=== PATIENT | male | born 1940 | race Caucasian/White ===

== ENCOUNTER 2017-05-22 11:03 | Emergency (ER) | payer MEDICARE, BC ==
[2017-05-22] MEDS ORDERED: IPRATROPIUM/ALBUTEROL 0.5/3 MG 3 ML AMPUL.NEB INHALATION ONE (11:27)
[2017-05-22 11:37] LABS: BASOPHILS 0.8 % (0.0-2.0); EOSINOPHILS# 0.2 X 10^3uL (0.0-0.4); HEMATOCRIT 50.7 % (42.0-54.0); HEMOGLOBIN 17.6 g/dL (14.0-18.0); LYMPHOCYTES 37.3 % (20.0-40.0); LYMPHOCYTES# 3.3 X 10^3uL (0.8-3.8); MEAN CORPUS. HGB CONCENTRATION 34.8 g/dL (32.0-36.0); MEAN CORPUSCULAR HEMOGLOBIN 33.3 pg (29.0-35.0); MEAN PLATELET VOLUME 7.7 fL (7.4-10.4); MONOCYTES 7.4 % (2.0-10.0); MONOCYTES# 0.7 X 10^3uL (0.2-1.0); NEUTROPHILS 52.5 % (54.0-75.0); NEUTROPHILS# 4.6 X 10^3uL (2.6-6.7); PLATELET COUNT 200 X 10^3uL (130-440); RED CELL DISTRIBUTION WIDTH 13.3 % (11.5-14.5); WHITE BLOOD COUNT 8.7 X 10^3uL (3.9-10.7)
[2017-05-22 11:38] LABS: BASOPHIL# 0.1 X 10^3uL (0.0-0.1); BLOOD UREA NITROGEN 20 mg/dL (9-20); CALCIUM 10.2 mg/dL (8.4-10.2); CHLORIDE 98 mmol/L (98-107); EST GLOMERULAR FILTRATION RATE > 60 mL/min; GLUCOSE 149 mg/dL (70-100); MAGNESIUM 1.9 mg/dL (1.6-2.3); POTASSIUM 3.8 mmol/L (3.5-5.1); SODIUM 136 mmol/L (137-145)
[2017-05-22] MEDS ORDERED: NORMAL SALINE 500 ML IV ONE (11:42)
--- NOTE | 2017-05-22 11:49 | RADIOLOGY REPORT ---
HISTORY: Chest pain. COMPARISON: None. FINDINGS: 1 view of the chest obtained. The lungs are clear and well inflated. There is no evidence of pneumonia or pulmonary edema. There is no evidence of pleural effusion or pneumothorax. The heart is not enlarged. The bones appear unremarkable. IMPRESSION: Normal chest radiograph. Final Electronic Signature: This report was electronically signed by Ry Howard MD on 05/22/20 17 11:47 AM. [email or web address] /
[2017-05-22 11:53] LABS: TROPONIN I < 0.012 ng/mL (0.00-0.034)
--- NOTE | 2017-05-22 12:26 | ER PHYSICIAN DOCUMENTATION ---
Physician Documentation [facility] Name:Blayne Brown Age:77 yrs Sex:Male :1940 Arrival Date:05/22/2017 Time:11:03 BedTrauma-C Private MD: Andrew Bain Disposition: 05/22 12:13 Critical Care: not applicable. cd Disposition: 05/22/17 12:14 Discharged to Home/Self Care. Impression: COPD Exacerbation, Chest Pain, Other. - Condition is Good. - Discharge Instructions: COPD FLARE. - Medical Reconciliation form form. - Follow up: Private Physician; When: 2 - 3 days; Reason: Recheck today's complaints, Continuance of care. - Problem is new. - Symptoms are resolved. - Notes: Drink plenty of fluids. Rest today. Follow up with a Case Hardener upon returning home... Follow up with a Real Estate Subagent in 7 - 10 days for evaluation and possible Stress Echo. HPI: 11:21 This 77 yrs old Male presents to ER via Private Vehicle with complaints of cd Chest discomfort Janet; Dizziness and weakness while hiking today. 11:21 The patient or guardian reports chest pain that is located primarily in the substernal cd area. Onset: gradually, 4 day(s) ago, while hiking [employer] [place], 3 miles, steep [place]. He did some deep breathing exercises and took two puffs off his inhaler and it went completely away. He attributed that to his COPD. He has not had any chest discomfort over the past three days. He has hiked multiple hikes since that time. This morning he was hiking in one mile and felt a little dizzy and weak. He decided to turn around and come to the ED for an evaluation.. There has been no movement of pain. Associated signs and symptoms: Pertinent positives: dizziness, weakness ...but no chest pain or discomfort now.. Historical: - Allergies: Beta-Blockers (Beta-Adrenergic Blocking Agts); other's he can't remember; - Home Meds: 1. Lipitor Oral 2. Flomax Oral 3. omeprazole Oral 4. aspirin 81 mg oral tab 1 tab once daily - PMHx: COPD; - PSHx: total shoulder replacement; - Tetanus: < 10 years. - Ebola Screening: : Patient negative for fever greater than or equal to 101.5 degrees Fahrenheit, and additional compatible Ebola Virus Disease symptoms. Patient denies exposure to infectious person. Patient denies travel to an Ebola-affected area in the 21 days before illness onset. No symptoms or risks identified at this time. . - Immunization history: Pneumococcal vaccine is up to date, Flu Vaccine < 1 year. - Social history: Smoking status: Patient states former smoker of tobacco. Patient/guardian denies using alcohol, street drugs, IV drugs, marijuana. ROS: 11:26 ENT: Negative for injury, pain, epistaxis and discharge. cd Neck: Negative for injury, pain, stiffness and swelling. Abdomen/GI: Negative for abdominal pain, nausea, vomiting, diarrhea, constipation, distension, melena, hematochezia and hematemesis. Back: Negative for injury, pain or muscle spasms. MS/Extremity: Negative for injury, deformity, edema, calf tenderness, pain or coldness. Skin: Negative for injury, rash, itching and discoloration. 11:26 Neuro: Negative for headache, weakness, numbness, tingling, and seizure. cd 11:26 Constitutional: Negative for chills, fever, poor PO intake. 11:26 Cardiovascular: Positive for chest pain, Negative for edema, orthopnea, palpitations. 11:26 Respiratory: Negative for cough, dyspnea on exertion, hemoptysis, orthopnea, shortness of breath, sputum production, wheezing. 11:26 All other systems are negative. Exam: ENT: Nares patent. No nasal discharge, no septal abnormalities noted. Tympanic membranes are normal and external auditory canals are clear. Oropharynx with no redness, swelling, or masses, exudates, or evidence of obstruction, uvula midline. Mucous membranes dry Neck: Trachea midline, no thyromegaly or masses palpated, and no cervical lymphadenopathy. Supple, full range of motion without nuchal rigidity, or vertebral point tenderness. No Meningismus. Chest/axilla: Normal chest wall appearance and motion. Nontender with no deformity. No lesions are appreciated. Abdomen/GI: Soft, non-tender, with normal bowel sounds. No distension or tympany. No guarding or rebound. No evidence of tenderness throughout. Back: No spinal tenderness. No costovertebral tenderness. Full range of motion. Skin: Warm, dry with normal turgor. Normal color with no rashes, no lesions, and no evidence of cellulitis. MS/ Extremity: Pulses equal, no cyanosis. Neurovascular intact. Full, normal range of motion. 11:27 Neuro: Awake and alert, GCS 15, oriented to person, place, time, and situation. cd Cranial nerves II-XII grossly intact. Motor strength 5/5 in all extremities. Sensory grossly intact. Cerebellar exam normal. Normal gait. 11:27 Constitutional: The patient appears alert, awake, non-diaphoretic, non-toxic, well developed, well nourished, anxious. 11:27 Cardiovascular: Rate: normal, Rhythm: regular, Pulses: no pulse deficits are appreciated, Heart sounds: normal, Edema: is not appreciated. 11:27 Respiratory: the patient does not display signs of respiratory distress, Respirations: normal, no acute changes, Breath sounds: are normal, clear throughout. Vital Signs: 11:06 BP 163 / 90 (auto/); sc1 11:06 Pulse 93 MON; Resp 22; Pulse Ox 91% ; sc1 12:00 BP 138 / 84 (auto/); sc1 12:01 Pulse 83 MON; Resp 15; Pulse Ox 89% ; sc1 [place] Coma Score: 11:27 Eye Response: spontaneous(4). Verbal Response: oriented(5). Motor Response: obeys cd commands(6). Total: 15. MDM: 11:04 Differential diagnosis: acute myocardial infarction, anxiety, coronary artery disease cd pulmonary embolus, unstable angina, COPD exacerbation. Patient took aspirin in the Emergency Department. Patient did not receive fibrinolytic due to not indicated. 11:10 Data interpreted: senior games technician: rate is 89 beats/min, rhythm is normal sinus rhythm, cd regular, with no ectopy, Interpretation: normal rate, normal rhythm, Pulse oximetry: on room air is 90 %. Interpretation: normal. 11:11 Patient medically screened. cd 11:12 ECG:. cd 11:14 Data reviewed: vital signs, nurses notes, old medical records, EKG, and as a result, I cd will continue to observe the patient, administer IV fluids, NS bolus, a Duoneb and ASA. 11:38 EKG attached [facility] [place] 12:10 Counseling: I had a detailed discussion with the patient and/or guardian regarding: the cd historical points, exam findings, and any diagnostic results supporting the discharge/admit diagnosis, lab results, radiology results, the need for outpatient follow up, for a recheck, for a referral to a specialist, a body shop worker, a flat bed knitter, to return to the emergency department if symptoms worsen or persist or if there are any questions or concerns that arise at home. Medication response: The patient's symptoms have improved. 05/22 11:38 Order name: CBC AUTO DIF, MDIF/RMOR IF IND; Complete Time: 12:07 [facility] 05/22 11:51 Interpretation: Normal. 05/22 11:39 Order name: BASIC METABOLIC PANEL; Complete Time: 12:07 [facility] 05/22 11:51 Interpretation: Normal. 05/22 11:39 Order name: MAGNESIUM; Complete Time: 12:07 [facility] 05/22 11:51 Interpretation: Normal. 05/22 11:41 Order name: DDIMER; Complete Time: 12:07 [facility] 05/22 11:52 Interpretation: Abnormal: DDIMER 376; Mildly Elevated, but not greater than 10x his age. 05/22 11:53 Order name: TROPONIN I; Complete Time: 12:07 [facility] 05/22 12:07 Interpretation: Normal. 05/22 11:51 Order name: CHEST; [place]ING[place] [id number]; Complete Time: 11:53 [facility] 05/22 Interpretation: Normal: Normal. See Radiologist report. 05/22 11:11 Order name: 12-lead EKG; Complete Time: 11: 05/22 11:11 Order name: Iv Saline Lock; Complete Time: : 05/22 11:11 Order name: Place Patient On Monitor; Complete Time: : 05/22 11:11 Order name: Pulse Ox Continuous; Complete Time: : EC:04 Rate is 89 beats/min. Rhythm is regular. QRS [place] is Normal. [place] interval is normal. QRS cd interval is normal. QT interval is normal. No Q waves. T waves are Normal. No ST changes noted. Clinical impression: Normal ECG and No evidence of ischemia. Interpreted by me. Dispensed Medications: 11:15 Drug: DuoNeb (Albuterol 2.5 mg, Atrovent 0.5 mg); 3 ml; Route: Nebulizer; 12:22 Follow up: Response: No adverse reaction; No adverse reaction, pt. states she feels sc1 better. 11:22 Drug: Aspirin Chewable Tablet 324 mg; Route: PO; sc1 12:23 Follow up: Response: No adverse reaction [facility] [place] 11:26 Drug: NS 0.9% 400 ml; Route: IV; Rate: bolus; Site: left antecubital; Delivery: [place] sc1 Tubing; 12:21 Follow up: IV Status: Completed infusion; IV Intake: 500ml mt1 Signatures: Gretchen Rios RN RN mt1 Andrew Stallworth MD MD cd Janzen, Sarah sj
--- NOTE | 2017-05-22 12:26 | ER NURSING DOCUMENTATION ---
Nurse's Notes [facility] Name:Blayne Brown Age:77 yrs Sex:Male :1940 Arrival Date:05/22/2017 Time:11:03 BedTrauma-C Private MD: Diagnosis:COPD Exacerbation;Chest Pain, Other Presentation: 05/22 11:09 Acuity: LATIA 2 tg 11:13 Presenting complaint: Patient states: tightness in chest, dizziness and shakiness since ga1 this morning. Had a similar episode on Wednesday when hiking. Pt. states he used his inhaler on Wednesday and symptoms resolved. Used his inhaler today and there was no change. Transition of care: patient was not received from another setting of care. AIR CAT ACTIVATION no. Asprin Given Given in ED 325 mg po. Notified ED Physician of patient's arrival and CC Dr. Stallworth notified. 11:13 Method Of Arrival: Private Vehicle ga1 Triage Assessment: 11:36 General: Appears comfortable, well developed, well nourished, well groomed, Behavior is ga1 cooperative, pleasant. Pain: Complains of pain in chest Pain does not radiate. Pain currently is 3 out of 10 on a pain scale. Quality of pain is described as tightness. Cardiovascular: No deficits noted. 11:37 Respiratory: No deficits noted. ga1 Historical: - Allergies: Beta-Blockers (Beta-Adrenergic Blocking Agts); other's he can't remember; - Home Meds: 1. Lipitor Oral 2. Flomax Oral 3. omeprazole Oral 4. aspirin 81 mg oral tab 1 tab once daily - PMHx: COPD; - PSHx: total shoulder replacement; - Tetanus: < 10 years. - Ebola Screening: : Patient negative for fever greater than or equal to 101.5 degrees Fahrenheit, and additional compatible Ebola Virus Disease symptoms. Patient denies exposure to infectious person. Patient denies travel to an Ebola-affected area in the 21 days before illness onset. No symptoms or risks identified at this time. . - Immunization history: Pneumococcal vaccine is up to date, Flu Vaccine < 1 year. - Social history: Smoking status: Patient states former smoker of tobacco. Patient/guardian denies using alcohol, street drugs, IV drugs, marijuana. Screenin:37 Infectious Disease Risk None. Abuse screen: Denies threats or abuse. Nutritional sc1 screening: No deficits noted. Assessment: 12:24 Reassessment: Patient states feeling better. Patient states symptoms have improved. sc1 Patient appears in no apparent distress at this time. Vital Signs: 11:06 BP 163 / 90 (auto/); sc1 11:06 Pulse 93 MON; Resp 22; Pulse Ox 91% ; sc1 12:00 BP 138 / 84 (auto/); sc1 12:01 Pulse 83 MON; Resp 15; Pulse Ox 89% ; sc1 [place] Coma Score: 11:27 Eye Response: spontaneous(4). Verbal Response: oriented(5). Motor Response: obeys cd commands(6). Total: 15. ED Course: 11:03 EKG done. (by ED staff). Reviewed by Andrew Stallworth MD. Inserted saline lock: 18 gauge in em3 right antecubital area and blood collected. 11:04 Patient arrived in ED. arc 11:09 Triage completed. tg 11:11 Andrew Stallworht MD is Attending Physician. cd 11:12 Gretchen Rios, BENIGNO is Primary Nurse. sc1 11:17 Valuables Remains with patient Patient has correct armband on for positive em3 identification. Placed in gown. Bed in low position. Call light in reach. Side rails up X2. 11:17 playground monitor on. Pulse ox on. NIBP on. sc1 11:18 Labs drawn. By bench assembler battery Sent per order to lab. em3 11:38 EKG attached sc1 11:41 Notified ED physician, Dr. Stallworth of critical lab value for DDimer with actual value of sj 376 No new orders received at this time. 12:21 Discontinued IV intact, bleeding controlled, pressure dressing applied, No sc1 redness/swelling at site. Administered Medications: 11:15 Drug: DuoNeb (Albuterol 2.5 mg, Atrovent 0.5 mg); 3 ml; Route: Nebulizer; 12:22 Follow up: Response: No adverse reaction; No adverse reaction, pt. states she feels sc1 better. 11:22 Drug: Aspirin Chewable Tablet 324 mg; Route: PO; sc1 12:23 Follow up: Response: No adverse reaction [facility] [place] 11:26 Drug: NS 0.9% 400 ml; Route: IV; Rate: bolus; Site: left antecubital; Delivery: [place] sc1 Tubing; 12:21 Follow up: IV Status: Completed infusion; IV Intake: 500ml sc1 Intake: 12:21 IV: 500ml; Total: 500ml. ga1 Outcome: 12:01 Discharge instructions given to patient, Instructed on discharge instructions, follow sc1 up and referral plans. Demonstrated understanding of instructions. 12:14 Discharge ordered by . opal 12:24 Discharged to home ambulatory. ga1 12:24 Condition: improved 12:26 Patient left the ED. ga1 Signatures: Delvis Natarajan RN RN tg Gretchen Rios RN RN sc1 Andrew Stallworth MD MD cd Abbott, Samantha Stewart, Silvana Arrington Reg Reg arc Janzen, Cathleen dolan
== END 2017-05-22 12:26 | disposition home or self-care (01) ==
LOC: ER 11:03
DX: J44.1 Chronic obstructive pulmonary disease with (acute) exacerbation (principal); R07.89 Other chest pain; E86.0 Dehydration; R42 Dizziness and giddiness; R53.1 Weakness; R79.1 Abnormal coagulation profile; Z79.82 Long term (current) use of aspirin; Z79.899 Other long term (current) drug therapy
CPT/HCPCS: 71010; 80048; 83735; 84484; 85025; 85379; 93005; 93010; 94640; 96360; 99285; J7040; J7620